=== PATIENT | female | born 1955 | race Caucasian/White ===

== ENCOUNTER 2022-10-18 11:27 | Observation (INO) ==
[2022-10-18] MEDS ORDERED: dilTIAZem HCl 5 MG/ML 5 ML VIAL IV STA ×2 (11:49→13:18)
[2022-10-18 12:08] LABS: Basophils # (auto) 0.05 K/uL (0-0.2); Basophils % (auto) 0.7 %; Eosinophils # (auto) 0.07 K/uL (0-0.50); Eosinophils % (auto) 0.9 %; Hematocrit (blood only) 47.7 % (37.0-47.0); Hemoglobin 16.3 g/dl (12.0-16.0); Immature Granulocytes # (auto) 0.01 K/uL (0.01-0.20); Immature Granulocytes % (auto) 0.1 %; Lymphocytes # (auto) 2.41 K/uL (1.2-3.4); Mean Corpuscular Hemoglobin 28.7 pg (25.0-34.0); Mean Corpuscular Hgb Conc 34.2 g/dL (32.0-36.0); Mean Platelet Volume 9.2 fL (9.4-12.4); Monocytes # (auto) 0.49 K/uL (0.11-0.59); Monocytes % (auto) 6.5 %; Neutrophils % (auto) 59.8 %; Platelet Count 337 K/uL (130-400); RDW Coefficient of Variation 13.2 % (11.5-14.5); RDW Standard Deviation 40.7 fL (36.4-46.3); Red Blood Count 5.68 M/uL (4.20-5.40); White Blood Count 7.53 K/ul (4.8-10.8)
[2022-10-18 12:26] LABS: Albumin Globulin Ratio 1.1 (0.9-2); Albumin Level 4.2 gm/dl (3.4-5.0); BUN Creatinine Ratio 14.4 (10-20); Bilirubin,Total 0.7 mg/dl (0.2-1.0); Calcium 9.4 mg/dl (8.6-10.3); Creatinine Clr Calc Pharmacy 68.7 ml/min; Est GFR (African American) 75.6 ml/min; Est GFR (Non-African American) 65.2 ml/min; Globulin 3.8 gm/dl (2.5-4.0); Magnesium 1.9 mg/dl (1.7-2.4)
[2022-10-18 12:31] LABS: Troponin I High Sensitivity 14.4 pg/ml (0-14)
--- NOTE | 2022-10-18 12:31 | XRay Report ---
XR chest 1V portable CLINICAL HISTORY: Dysrhythmia TECHNIQUE: Single frontal radiograph of the chest was obtained. Comparison: None available at the time of this dictation. FINDINGS: No lines and tubes are seen. The cardiomediastinal silhouette is normal. The lungs are clear. No evid ence of pleural effusion or pneumothorax. IMPRESSION: No acute chest disease. ACT 112: Negative or not required by law. Electronically signed by: Adair Mcwilliams M.D. 10/18/2022 12:30 PM
[2022-10-18 12:40] LABS: Partial Thromboplastin Time 28.8 Seconds (21.0-31.0)
--- NOTE | 2022-10-18 13:43 | History & Physical Report ---
Date of Service October 18, 2022 Assessment & Plan (1) New onset a-fib: Plan: New onset afib - [id number] = 3 points - EKG: A-fib with RVR, QTc 438, rate 170 on admission. She received diltiazem 10 mg x 1 and 20 mg x 1 with subsequent decrease of rate to 100 We will transition to metoprolol, will start at 25 mg p.o. twice daily Patient agreeable to anticoagulation for A-fib prophylaxis, discussed risk/benefits and management of bleeding complications. We will start Eliquis twice daily at this time - No hypoxia - No leukocytosis - High-sensitivity troponin 14.4. Repeat ordered at time of admission. Suspect demand with RVR, no chest pain before presentation or while in ER - Magnesium 1.9, p.o. x1 given to optimize goal of 2 - Potassium 4.0, at optimization goal Patient does inquire about potential for ablation which her older sister recently had after developing A-fib only 18 months ago. Did discuss with cardiology, patient will need referral for this and this will not affect initial acute management at this time. Can have outpatient follow-up and if a good candidate will need [place] [facility] [place] Patient is on aspirin for primary prophylaxis, no history of stroke/CAD. This is held with transition to DOAC Metoprolol IV 2.5 mg q5m 3 doses per episode every 6 hours as needed for acute rate control, if additional or limited by hypotension can pursue digoxin versus amnio at that time. Not indicated at time of admission DVT prophylaxis: Anticoagulated Diet: Heart healthy Disposition: PCU CODE STATUS: Full (2) Hx of appendectomy: (3) FHx: cholecystectomy: History of Present Illness Primary Care Provider: NO PCP Esther is a 67-year-old female with no hx of heart problems who presents with afib rvr noted on a smartwatch. 830pm last night her smartwatch alerted that she may have afib. Went ot bed, and again it alerted at 130am. She reports she feels tired 'like after a flu but when you're a little tired and rubbery but not feverish.' Denies palpitations, no chest pain, no chest pressure No shortness of breath at rest, but easily fatigued and short of breath with exertion Some might lightheadedness Endorses nausea to odd smells at baseline, no current change Denies recent illnesses Denies history of bleeding complications, GI bleed, stomach ulcers, GERD Primary Care Doctor: Dr. Larose, currently without a PCP as she left for [place]. MedHx: Weight, s/p choley and appey, s/p cataract surgery. HTN but well controlled (high here which is unusual for her) Fhx: Older sister with afib. Father with massive [place] at 59. PGF CVA, MGF angina + CAD developed in 80s. No FHx of DM. Pt without DM, A1C 5.7% Medical History: Reviewed Medications: Reviewed Surgical History: Reviewed Family history: Reviewed Allergies: Reviewed Social History: No tobacco use, no etoh, no recreational drug. Code Status: Full Code. Surrogate DM would be Thomas Morrow available at [phone] per pt. Allergies Allergy/AdvReac Type Severity Reaction Status Date / Time egg Allergy Unknown Unknown Unverified 10/18/22 13:29 Sulfa (Sulfonamide Allergy Unknown HIVES Verified 04/08/09 02:53 Antibiotics) Home Medications Medication Instructions Recorded Confirmed Type aspirin 500 mg tablet See Rx Instructions .Route 10/18/22 10/18/22 History .COMPLEX PRN Pain fluticasone propionate 50 1 spray intranasal DAILY PRN other 10/18/22 10/18/22 History mcg/actuation nasal spray,suspension (Flonase Allergy Relief) multivitamin 1 tab PO DAILY 10/18/22 10/18/22 History peg 400-propylene glycol (PF) 0.4 1 drp ophthalmic (eye) HS PRN Other 10/18/22 10/18/22 History %-0.3 % eye drops in a dropperette (Systane (PF)) Past Med/Surg History Medical History (Updated 10/18/22 @ 14:07 by aRjiv Yoon MD) FHx: cholecystectomy Surgical History (Updated 10/18/22 @ 14:07 by Rajiv Yoon MD) Hx of appendectomy Family History (Updated 10/18/22 @ 14:27 by Rajiv Yoon MD) Sister Heart disease afib Father Heart disease [place] 59yo Mother Stroke Social History Smoking Status: Never smoker Preferred Language: Turkish Feels Safe at Home: Yes Review of Systems Review of Systems: All systems reviewed & are unremarkable except as noted in HPI & below Physical Exam Physical Exam: General: A&Ox3. NAD. Cooperative. HEENT: Atraumatic, normocephalic. PERLAA. Vision/hearing Pulm: CTAB A&P. -wheezes, -rales, -rhonchi. Symmetrical chest rise. No increased work of breathing. No respiratory distress. Cardiac: irir,rates 90-120 -mrg. Radial pulses intact and symmetrical. Abdominal: Nontender, nondistended, soft. BS present. Ext: warm, dry. No edema. moves all extremities equally Results & Data Results & Data Vital Signs (Past 12 Hours) Vital Signs Temp Pulse Pulse Resp BP BP Pulse Ox 10/18/22 12:10 100 H 18 117/73 96 10/18/22 11:48 169 H 10/18/22 11:42 171 H 14 170/103 H 96 10/18/22 11:41 10/18/22 11:32 36.1 C L 119 H 18 144/92 H 98 O2 Del Method 10/18/22 12:10 Room Air 10/18/22 11:48 10/18/22 11:42 10/18/22 11:41 Room Air 10/18/22 11:32 Room Air PG Care Time/CCT Total # of Minutes Spent Total Time Spent with Patient: Total time spent is greater than 50% in coordination of care (as documented) at patient's floor/unit and/or counseling patient: Coding Level of Care Code 76471 INT INP/OBS CARE 3/75MIN Diagnoses New onset a-fib I48.91 Hx of appendectomy Z90.49 FHx: cholecystectomy Z83.79
[2022-10-18] MEDS ORDERED: APIXABAN 5 MG TABLET PO STA (14:19)
[2022-10-18] MEDS: METOPROLOL TARTRATE 25 MG TAB PO SCH ×2 (15:00→20:51)
--- NOTE | 2022-10-18 15:54 | Electrocardiogram Report ---
Test Reason : Blood Pressure : / mmHG Vent. Rate : 171 BPM Atrial Rate : 000 BPM P-R Int : 000 ms QRS Dur : 086 ms QT Int : 260 ms P-R-T Axes : 000 030 066 degrees QTc Int : 438 ms Atrial fibrillation with rapid ventricular response with premature ventricular or aberrantly conducte d complexes Possible Anterior infarct , age undetermined Abnormal ECG No previous ECGs available Confirmed by Rory Alvarado ([id number]) on 10/18/2022 3:54:26 PM Referred By: REFERRED SELF Confirmed By:Rory Alvarado
--- NOTE | 2022-10-18 16:04 | XCELERA ---
[id number] \\[id number]
[2022-10-18] MEDS ORDERED: MAGNESIUM OXIDE 400 MG TAB PO ONE (17:15)
[2022-10-18] MEDS ORDERED: METOPROLOL TARTRATE 1 MG/ML VIAL IV PRN (17:15)
[2022-10-18] MEDS: APIXABAN 5 MG TABLET PO SCH (20:52)
--- NOTE | 2022-10-18 21:53 | Emergency Department Note ---
ED Provider Note CHIEF COMPLAINT: palpitations HISTORY OF PRESENT ILLNESS: This 67-year-old female patient with no significant past medical history presents to the emergency department with concerns for atrial fibrillation. She states her Apple Watch was alarming her that she may be in atrial fibrillation and she should call her doctor. She states today her chest has felt a bit heavy and she has been fatigued but otherwise she has not noticed any significant symptoms. She denies any recent illnesses, fever, vomiting or diarrhea. REVIEW OF SYSTEMS: A review of systems was performed with positives and pertinent negatives listed in the history of present illness. 10 systems were reviewed and are otherwise negative. ALLERGIES: see below MEDICATIONS: see below PMH: see below SOCIAL HISTORY: see below DDx: [] PHYSICAL EXAM: Vital signs reviewed. General: Well-appearing, in no significant distress. HEENT: No scleral icterus, PERRLA, neck supple. Atraumatic. Cardiovascular: Regular rate and rhythm, no extra sounds. Pulmonary: Clear to auscultation bilaterally, normal work of breathing. Abdomen: Soft, nontender, nondistended, positive bowel sounds. Musculoskeletal: Atraumatic, no peripheral edema. Neurologic: Patient awake alert and oriented x 3, speech is clear Skin: Warm, dry, no rash EMERGENCY DEPARTMENT COURSE/MDM: [] MONITORING: An order for cardiac monitoring was placed and the patient is noted to be in a [] at [] beats per minute. RADIOLOGY: EKG: DISPOSITION: Past Med/Surg History Medical History (Updated 10/18/22 @ 14:07 by Rajiv Yoon MD) FHx: cholecystectomy Surgical History (Updated 10/18/22 @ 14:07 by Rajiv Yoon MD) Hx of appendectomy Family History (Updated 10/18/22 @ 14:27 by Rajiv Yoon MD) Sister Heart disease afib Father Heart disease [place] 59yo Mother Stroke Social History Smoking Status: Never smoker Hx Alcohol Use: No Hx Substance Use: No Preferred Language: Martiniquais Communication Ability: Effective Canopy Inspector Required: No Beliefs That Will Affect Care: None Current Living Situation: Alone Other Information That Helps Us Care for You: No Feels Safe at Home: Yes Safety Concerns: Feels Safe At This Time Assistive Devices: None Allergies Allergies Allergy/AdvReac Type Severity Reaction Status Date / Time corn Allergy Mild Rash Verified 10/18/22 17:24 egg Allergy Unknown Unknown Unverified 10/18/22 13:29 Sulfa (Sulfonamide Allergy Unknown HIVES Verified 04/08/09 02:53 Antibiotics) Home Meds Home Medications Medication Instructions Recorded Confirmed aspirin 500 mg tablet See Rx Instructions .Route 10/18/22 10/18/22 .COMPLEX PRN Pain fluticasone propionate 50 1 spray intranasal DAILY PRN other 10/18/22 10/18/22 mcg/actuation nasal spray,suspension (Flonase Allergy Relief) multivitamin 1 tab PO DAILY 10/18/22 10/18/22 peg 400-propylene glycol (PF) 0.4 1 drp ophthalmic (eye) HS PRN Other 10/18/22 10/18/22 %-0.3 % eye drops in a dropperette (Systane (PF)) Results & Data (ED) Vital Signs Vital Signs - 24 hr 10/18/22 11:32 10/18/22 11:41 10/18/22 11:42 Temperature 36.1 C L Temperature Source Temporal Artery Scan Pulse Rate 119 H Pulse Rate [Apical] 171 H Pulse Rhythm [Apical] Respiratory Rate 18 14 Respiratory Effort / Characteristics Non-Labored Spontaneous Respiratory Depth Normal Blood Pressure 144/92 H Blood Pressure [Left Arm] 170/103 H Blood Pressure Mean 109 Blood Pressure Mean [Left Arm] 125 Pulse Oximetry 98 96 Oxygen Delivery Method Room Air Room Air Sepsis Recent Fever Within 48 Hours No Sepsis New/Unexplained Change in Mental Status No Sepsis Action Taken by Nursing No Action Required 10/18/22 11:48 10/18/22 12:10 10/18/22 14:00 Temperature Temperature Source Pulse Rate 169 H Pulse Rate [Apical] 100 H 101 H Pulse Rhythm [Apical] Irregular Irregular Respiratory Rate 18 18 Respiratory Effort / Characteristics Respiratory Depth Blood Pressure Blood Pressure [Left Arm] 117/73 131/92 Blood Pressure Mean Blood Pressure Mean [Left Arm] 87 105 Pulse Oximetry 96 96 Oxygen Delivery Method Room Air Room Air Sepsis Recent Fever Within 48 Hours Sepsis New/Unexplained Change in Mental Status Sepsis Action Taken by Nursing Laboratory Data 10/18/22 11:50 10/18/22 11:50 Lab Results 10/18/22 10/18/22 10/18/22 Range/Units 11:50 11:50 11:50 WBC 7.53 (4.8-10.8) K/ul RBC 5.68 H (4.20-5.40) M/uL Hgb 16.3 H (12.0-16.0) g/dl Hct 47.7 H (37.0-47.0) % MCV 84.0 (80.0-100.0) fL MCH 28.7 (25.0-34.0) pg MCHC 34.2 (32.0-36.0) g/dL RDW Std Deviation 40.7 (36.4-46.3) fL RDW Coeff of Michael 13.2 (11.5-14.5) % Plt Count 337 (130-400) K/uL MPV 9.2 L (9.4-12.4) fL Immature Gran % (Auto) 0.1 % Neut % (Auto) 59.8 % Lymph % (Auto) 32.0 % Flagler % (Auto) 6.5 % Eos % (Auto) 0.9 % Baso % (Auto) 0.7 % Neut # (Auto) 4.50 (1.40-6.50) K/uL Lymph # (Auto) 2.41 (1.2-3.4) K/uL Flagler # (Auto) 0.49 (0.11-0.59) K/uL Eos # (Auto) 0.07 (0-0.50) K/uL Baso # (Auto) 0.05 (0-0.2) K/uL Immature Gran # (Auto) 0.01 (0.01-0.20) K/uL APTT 28.8 (21.0-31.0) Seconds PTT Ratio 1.0 Sodium 138 (136-145) mmol/L Potassium 4.0 (3.5-5.1) mmol/L Chloride 104 (98-107) mmol/L Carbon Dioxide 25 (21-32) mmol/L Anion Gap 9 (3-11) BUN 13 (6-23) mg/dl Creatinine 0.90 (0.6-1.2) mg/dl Est Cr Clr Drug Dosing 68.7 ml/min Est GFR ( Amer) 75.6 ml/min Est GFR (Non-Af Amer) 65.2 ml/min BUN/Creatinine Ratio 14.4 (10-20) Glucose 143 H (70-99(Fasting)) mg/dl Calcium 9.4 (8.6-10.3) mg/dl Magnesium 1.9 (1.7-2.4) mg/dl Total Bilirubin 0.7 (0.2-1.0) mg/dl AST 20 (13-39) U/L ALT 17 (7-52) U/L Alkaline Phosphatase 92 (34-104) U/L Troponin I High Sens 14.4 H (0-14) pg/ml Total Protein 8.0 (6.0-8.3) gm/dl Albumin 4.2 (3.4-5.0) gm/dl Globulin 3.8 (2.5-4.0) gm/dl Albumin/Globulin Ratio 1.1 (0.9-2) TSH (0.300-4.500) uIu/ml 10/18/22 Range/Units 11:50 WBC (4.8-10.8) K/ul RBC (4.20-5.40) M/uL Hgb (12.0-16.0) g/dl Hct (37.0-47.0) % MCV (80.0-100.0) fL MCH (25.0-34.0) pg MCHC (32.0-36.0) g/dL RDW Std Deviation (36.4-46.3) fL RDW Coeff of Michael (11.5-14.5) % Plt Count (130-400) K/uL MPV (9.4-12.4) fL Immature Gran % (Auto) % Neut % (Auto) % Lymph % (Auto) % Flagler % (Auto) % Eos % (Auto) % Baso % (Auto) % Neut # (Auto) (1.40-6.50) K/uL Lymph # (Auto) (1.2-3.4) K/uL Flagler # (Auto) (0.11-0.59) K/uL Eos # (Auto) (0-0.50) K/uL Baso # (Auto) (0-0.2) K/uL Immature Gran # (Auto) (0.01-0.20) K/uL APTT (21.0-31.0) Seconds PTT Ratio Sodium (136-145) mmol/L Potassium (3.5-5.1) mmol/L Chloride (98-107) mmol/L Carbon Dioxide (21-32) mmol/L Anion Gap (3-11) BUN (6-23) mg/dl Creatinine (0.6-1.2) mg/dl Est Cr Clr Drug Dosing ml/min Est GFR ( Amer) ml/min Est GFR (Non-Af Amer) ml/min BUN/Creatinine Ratio (10-20) Glucose (70-99(Fasting)) mg/dl Calcium (8.6-10.3) mg/dl Magnesium (1.7-2.4) mg/dl Total Bilirubin (0.2-1.0) mg/dl AST (13-39) U/L ALT (7-52) U/L Alkaline Phosphatase (34-104) U/L Troponin I High Sens (0-14) pg/ml Total Protein (6.0-8.3) gm/dl Albumin (3.4-5.0) gm/dl Globulin (2.5-4.0) gm/dl Albumin/Globulin Ratio (0.9-2) TSH 1.897 (0.300-4.500) uIu/ml Administered Medications Apixaban (Apixaban 5 Mg Tablet) 5 mg PO BID HAILEY Stop: 11/17/22 20:59 Last Admin: 10/18/22 20:52 Dose: 5 mg Documented By: CHENG Metoprolol Tartrate (Metoprolol Tartrate 25 Mg Tab) 25 mg PO BID HAILEY Stop: 11/17/22 14:14 Last Admin: 10/18/22 20:51 Dose: 25 mg Documented By: Admin: 10/18/22 15:00 Dose: 25 mg Documented By: REJI Discontinued Medications Apixaban (Apixaban 5 Mg Tablet) 5 mg PO ONE STA Stop: 10/18/22 14:20 Last Admin: 10/18/22 15:01 Dose: 5 mg Documented By: REJI Diltiazem HCl (Diltiazem Hcl 5 Mg/Ml 5 Ml Vial) 20 mg IV NOW STA Stop: 10/18/22 11:50 Last Admin: 10/18/22 11:54 Dose: 20 mg Documented By: REJI Co-signed By: PEGGY Diltiazem HCl (Diltiazem Hcl 5 Mg/Ml 5 Ml Vial) 10 mg IV NOW STA Stop: 10/18/22 13:19 Last Admin: 10/18/22 13:49 Dose: 10 mg Documented By: REJI Co-signed By: HATTIE Magnesium Oxide (Magnesium Oxide 400 Mg Tab) 400 mg PO ONE ONE Stop: 10/18/22 17:16 Last Admin: 10/18/22 17:54 Dose: 400 mg Documented By: REJI Imaging Data Radiologist's Impression: Chest X-Ray 10/18/22 11:50 XR chest 1V portable CLINICAL HISTORY: Dysrhythmia TECHNIQUE: Single frontal radiograph of the chest was obtained. Comparison: None available at the time of this dictation. FINDINGS: No lines and tubes are seen. The cardiomediastinal silhouette is normal. The lungs are clear. No evidence of pleural effusion or pneumothorax. IMPRESSION: No acute chest disease. ACT 112: Negative or not required by law. Electronically signed by: Adair Mcwilliams M.D. 10/18/2022 12:30 PM Discharge Plan Visit Data Chief Complaint: Arrhythmia/Palpitations Stated Complaint: IRREGULAR HEART BEAT, REF BY DOC ED Provider: Tg Lawrence Patient Disposition: Admitted As Inpatient Discharge Instructions Interventions: ED Discharge Assessment Last Done: 10/18/22 17:10
[2022-10-19 06:42] LABS: Basophils # (auto) 0.05 K/uL (0-0.2); Basophils % (auto) 0.8 %; Eosinophils # (auto) 0.21 K/uL (0-0.50); Eosinophils % (auto) 3.2 %; Hematocrit (blood only) 39.6 % (37.0-47.0); Hemoglobin 13.5 g/dl (12.0-16.0); Immature Granulocytes # (auto) 0.01 K/uL (0.01-0.20); Immature Granulocytes % (auto) 0.2 %; Lymphocytes % (auto) 36.9 %; Mean Corpuscular Hemoglobin 28.6 pg (25.0-34.0); Mean Corpuscular Hgb Conc 34.1 g/dL (32.0-36.0); Mean Corpuscular Volume 83.9 fL (80.0-100.0); Mean Platelet Volume 9.2 fL (9.4-12.4); Monocytes # (auto) 0.62 K/uL (0.11-0.59); Monocytes % (auto) 9.5 %; Neutrophils # (auto) 3.21 K/uL (1.40-6.50); Neutrophils % (auto) 49.4 %; Platelet Count 275 K/uL (130-400); RDW Coefficient of Variation 13.2 % (11.5-14.5); RDW Standard Deviation 40.7 fL (36.4-46.3); Red Blood Count 4.72 M/uL (4.20-5.40)
[2022-10-19 07:28] LABS: Est GFR (African American) 97.4 ml/min; Potassium 4.2 mmol/L (3.5-5.1)
[2022-10-19 07:29] LABS: BUN Creatinine Ratio 16.4 (10-20); Calcium 8.5 mg/dl (8.6-10.3)
[2022-10-19] MEDS ORDERED: MULTIVITAMIN TAB PO SCH (09:00)
[2022-10-19] MEDS ORDERED: ONDANSETRON INJ 2 MG/ML 2 ML VIAL IV PRN (09:11)
[2022-10-19] MEDS: APIXABAN 5 MG TABLET PO SCH (09:47)
[2022-10-19] MEDS: METOPROLOL TARTRATE 25 MG TAB PO SCH (10:32)
[2022-10-19 10:49] LABS: Appearance Urine Clear (Clear); Bacteria Urine Automated Negative (Negative); Bilirubin Urine Negative (Negative); Blood Urine 1+ (Negative); Color Urine Yellow; Epithelial Cell Urine Auto 20-30 /lpf (0-5); Glucose Urine UA Negative (Negative); Ketones Urine Negative (Negative); Leukocyte Esterase Urine 3+ (Negative); Nitrite Urine Negative (Negative); Protein Urine Negative (Negative); RBC Urine Automated 0-4 /hpf (0-4); Specific Gravity Urine 1.005 (1.000-1.030); Urobilinogen Urine Negative (Negative); pH Urine 7.5 (4.5-7.5)
--- NOTE | 2022-10-19 16:57 | Communication Note ---
Date of Service: October 19, 2022 By CMS guidelines, a determination that the admission or continued stay is not medically necessary has been made by a member of the UR committee and a ph ysician for this hospital stay, therefore a Code 44 will be completed and the Inpatient admission will be changed to outpatient. Tyree More MD - attending physician
--- NOTE | 2022-10-19 16:57 | Discharge Summary ---
Date of Service October 19, 2022 Admission HPI Per Admitting Provider Esther is a 67-year-old female with no hx of heart problems who presents with afib rvr noted on a smartwatch. 830pm last night her smartwatch alerted that she may have afib. Went ot bed, and again it alerted at 130am. She reports she feels tired 'like after a flu but when you're a little tired and rubbery but not feverish.' Denies palpitations, no chest pain, no chest pressure No shortness of breath at rest, but easily fatigued and short of breath with exertion Some might lightheadedness Endorses nausea to odd smells at baseline, no current change Denies recent illnesses Denies history of bleeding complications, GI bleed, stomach ulcers, GERD Primary Care Doctor: Dr. Larose, currently without a PCP as she left for [place]. MedHx: Weight, s/p choley and appey, s/p cataract surgery. HTN but well controlled (high here which is unusual for her) Fhx: Older sister with afib. Father with massive [place] at 59. PGF CVA, MGF angina + CAD developed in 80s. No FHx of DM. Pt without DM, A1C 5.7% Medical History: Reviewed Medications: Reviewed Surgical History: Reviewed Family history: Reviewed Allergies: Reviewed Social History: No tobacco use, no etoh, no recreational drug. Code Status: Full Code. Surrogate DM would be Thomas Morrow available at [phone] per pt. Discharge Data Allergies Allergy/AdvReac Type Severity Reaction Status Date / Time corn Allergy Mild Rash Verified 10/18/22 17:24 egg Allergy Unknown Unknown Unverified 10/18/22 13:29 Sulfa (Sulfonamide Allergy Unknown HIVES Verified 04/08/09 02:53 Antibiotics) Consultations 10/18/22 13:42 ED Decision to Admit Stat Hospital Course (1) New onset a-fib: Discharge Plan Discharge Items Patient Disposition: Home - Self-Care Reason For Visit: Atrial fibrillation Discharge Diagnosis: New onset atrial fibrillation - resolved, heart is back in normal rhythm Activity: As commented below Activity Comment: light activities for 48 hours, then can gradually resume normal activities Non-emergency contact: Primary Care Provider and Pet Nutrition Specialist Call non-emergency contact if: you have any medication questions and your symptoms worsen Follow-up/Referrals: Sammi Doty PA-C [Physician Fare Enforcement Officer] - (3-4 weeks for atrial fibrillation ) PCP,NO [Primary Care Provider] - (we will help you obtain a new primary care physician ) Diet: Heart Healthy Addtl Attending Provider Instructions: Ms Gonzalez, Mark were hospitalized for atrial fibrillation, also known as "afib" for short. This is an irregular heart rhythm that originates from the top portion of the heart. Pending Studies at Discharge: Yes Studies:: urine culture Stand-Alone Forms: My [facility] Tag & See, Smoking Cessation Medications and DC Order Prescriptions: New Eliquis 5 mg Tablet 5 mg PO BID Qty: 60 5RF metoprolol tartrate 25 mg Tablet 25 mg PO BID PRN (Reason: rapid heart rate due to a.fib) Qty: 20 0RF Continued multivitamin [Multi-Vitamin] Tablet 1 tab PO DAILY fluticasone propionate [Flonase Allergy Relief] 50 mcg/actuation [place],Suspension 1 spray INTRANASAL DAILY PRN (Reason: other) Rx Instructions: administer into each nostril Systane (PF) 0.4-0.3 % Dropperette 1 drp OPHTHALMIC (EYE) HS PRN (Reason: Other) Discontinued aspirin 500 mg Tablet See Rx Instructions .ROUTE .COMPLEX PRN (Reason: Pain) Rx Instructions: as directed on OTC bottle Krames/Other Patient Handouts: AFib Preventing Stroke, AFib Admission Data Admit Date/Time: 10/18/22 14:25 Attending Provider: Tyree More Admit Provider: Rajiv Yoon Primary Care Provider: PCP,NO Other Providers: Rajiv Yoon Coding Diagnoses New onset a-fib I48.91
--- NOTE | 2022-10-19 17:01 | Communication Note ---
Date of Service: October 19, 2022 By CMS guidelines, a determination that the admission or continued stay is not medically necessary has been made by a member of the UR committee and a ph ysician for this hospital stay, therefore a Code 44 will be completed and the Inpatient admission will be changed to outpatient.
--- NOTE | 2022-10-22 08:46 | Electrocardiogram Report ---
Test Reason : Blood Pressure : / mmHG Vent. Rate : 060 BPM Atrial Rate : 060 BPM P-R Int : 158 ms QRS Dur : 088 ms QT Int : 426 ms P-R-T Axes : 059 022 092 degrees QTc Int : 426 ms Normal sinus rhythm Low voltage QRS Nonspecific T wave abnormality Abnormal ECG When compared with ECG of 18-OCT-2022 11:42, Sinus rhythm has replaced Atrial fibrillation Vent. rate has decreased BY 111 BPM Confirmed by Artie Ozuna ([id number]) on 10/22/2022 8:46:36 AM Referred By: REFERRED SELF Confirmed By:Artie Ozuna
== END 2022-10-19 17:48 | disposition home or self-care (01) | DRG 310 ==
LOC: ED 11:27 → SUATTDRO 14:25 → INTOOBSV 14:25 → EDINP 14:25 → 4W 17:10